=== PATIENT | female | born 1990 | race Caucasian/White ===

== ENCOUNTER 2019-07-28 11:53 | Inpatient (IN) | payer BC ==
[~2019-07-28] VITALS: Ht 157.6 cm; Wt 90.0 kg
[2019-08-01] VITALS (17 sets, daily range): BP systolic 81–117; BP diastolic 43–95; PULSE 52–86; TEMP 97.5–98.5
[2019-08-01] MEDS ORDERED: PRENATAL VITAMI1 TA3 PO (09:46)
[2019-08-01] MEDS ORDERED: PRILOSEC 20MG20 MG PO (09:47)
[2019-08-01 10:11] LABS: BASO % 0.4 % (0.0-2.0); EOS # 0.1 (0.0-0.7); GRAN % 63.3 % (42.2-75.2); HEMATOCRIT 37.6 % (37.0-47.0); HEMOGLOBIN 12.8 g/dl (12.5-16.0); LYMPH # 2.1 (1.2-3.4); LYMPH % 26.1 % (20.0-51.0); MEAN CELL VOLUME 89 fl (80.0-100.0); MEAN CORPUSCULAR HEMOGLOBIN 30 pg (27.0-31.0); MEAN CORPUSCULAR HGB CONC 34 g/dl (33.0-37.0); MEAN PLATELET VOLUME 8.8 fl (7.4-10.4); MONO # 0.7 (0.1-0.6); MONO % 8.7 % (1.7-9.3); PLATELET COUNT 337 K/mm3 (130-400); RED BLOOD COUNT 4.21 M/mm3 (4.10-5.30); REDCELL DISTRIBUTION WIDTH-CV 13.4 % (11.5-14.5)
[2019-08-02 01:30] VITALS: BP 99/59; PULSE 70; TEMP 98.2
[2019-08-02 05:00] VITALS: BP 109/53; PULSE 58; TEMP 98.2
[2019-08-02 08:45] VITALS: BP 104/66; PULSE 70; TEMP 97.8
--- NOTE | 2019-08-02 12:06 | NUR ---
Initial visit attempt; Family indisposed. Record Changer Assembler left card of congratulations for the of their daughter and information regarding the availability of spiritual care at [facility].
[2019-08-02 16:40] VITALS: BP 105/76; PULSE 73; TEMP 97.9
[2019-08-02 21:30] VITALS: BP 113/73; PULSE 79; TEMP 98.6
[2019-08-03 07:20] VITALS: BP 111/70; PULSE 87; TEMP 97.2
[2019-08-03] MEDS ORDERED: PERCOCET 325 MG1 TA2 PO (09:17)
[2019-08-03] MEDS ORDERED: IBU800 M1 PO (09:17)
--- NOTE | 2019-08-03 10:30 | NUR ---
Initial visit; Parents thanked Special Events Assistant for offering congratulations and God's blessings for the of their daughter. Special Events Assistant thanked family for choosing [facility].
[2019-08-03 16:50] VITALS: BP 108/72; PULSE 84; TEMP 97.9
[2019-08-03 20:00] VITALS: BP 117/50; PULSE 84; TEMP 98
[2019-08-04 08:06] VITALS: BP 110/68; PULSE 77; TEMP 97.7
== END 2019-08-04 16:48 | disposition home or self-care (01) | DRG 788 ==
LOC: OB 07-31 11:53
PROVIDERS: ADMIT Student in an Organized Health Care Education/Training Program
PROC: 10D00Z1 Extraction of Products of Conception, Low, Open Approach (ICD-10-PCS; principal; 2019-08-01)
DX: O32.1XX0 Maternal care for breech presentation, not applicable or unspecified (principal); Z3A.39 39 weeks gestation of pregnancy; Z37.0 Single live birth
CPT/HCPCS: J0690; J1885; J2370; J2405; J2590; J7120

== ENCOUNTER 2020-07-13 21:14 | Outpatient (CLI) | payer BC ==
[~2020-07-13] VITALS: Ht 157.5 cm; Wt 85.0 kg
[~2020-07-13 21:14] MED LIST: IBU800 M1 PO; PERCOCET 325 MG1 TA2 PO; PRENATAL VITAMI1 TA3 PO; PRILOSEC 20MG20 MG PO
--- NOTE | 2020-07-13 21:40 | NUR ---
G2L1 at 25.4 weeks gestation to L&D with c/o "bleeding". She states that she was using the bathroom and when she was done she saw blood in the toilet. SVE was completed and was closed/thick/high. There was no blood noted on the glove with exam. The patient then states that she is unsure if the bleeding was coming from her vagina or her rectum because she had a similar incident in March where she was seen in the ER in [place] for blood in her stools and found that she had a "staph infection in her intestines". Visualization of the anus does not reveal any hemorrhoids or active bleeding. Plan of care reviewed and patient placed on EFM. EFM held on abdomen, FHR 140 bpm and reactive. Patient reports good movement. No CTX per toco or patient reports. VSS.
[2020-07-13 21:55] VITALS: BP 119/64; PULSE 98; TEMP 98.2
--- NOTE | 2020-07-13 22:05 | NUR ---
No bleeding noted on pad. Patient given labor precautions and instructions to follow up with the [facility] for next appointment or questions/concerns.
[2020-07-13] MEDS ORDERED: LEXAPRO 10MG10 MG PO (22:31)
== END 2020-07-13 22:30 | disposition home or self-care (01) ==
LOC: LDRO 21:14 → LDR 22:29 → LDRO 22:30
DX: O46.92 Antepartum hemorrhage, unspecified, second trimester (principal); Z3A.25 25 weeks gestation of pregnancy
CPT/HCPCS: OP

== ENCOUNTER 2020-10-08 05:31 | Inpatient (IN) | payer BC ==
[2020-10-08] VITALS (19 sets, daily range): BP systolic 92–125; BP diastolic 50–77; PULSE 51–96; TEMP 97.3–97.7
[~2020-10-08] VITALS: Ht 157.6 cm; Wt 89.5 kg
[~2020-10-08 05:31] MED LIST changes: -PRILOTC
[2020-10-08] MEDS ORDERED: PRILOTC (06:43)
[2020-10-08 06:49] LABS: BASO % 0.4 % (0.0-2.0); EOS # 0.1 (0.0-0.7); GRAN # 5.4 (1.4-6.5); GRAN % 56.2 % (42.2-75.2); HEMATOCRIT 37.4 % (37.0-47.0); HEMOGLOBIN 12.5 g/dl (12.5-16.0); LYMPH # 3.3 (1.2-3.4); LYMPH % 33.9 % (20.0-51.0); MEAN CELL VOLUME 91 fl (80.0-100.0); MEAN CORPUSCULAR HEMOGLOBIN 30 pg (27.0-31.0); MEAN CORPUSCULAR HGB CONC 33 g/dl (33.0-37.0); MEAN PLATELET VOLUME 9.3 fl (7.4-10.4); MONO # 0.8 (0.1-0.6); MONO % 8.2 % (1.7-9.3); PLATELET COUNT 309 K/mm3 (130-400); RED BLOOD COUNT 4.11 M/mm3 (4.10-5.30); REDCELL DISTRIBUTION WIDTH-CV 13.2 % (11.5-14.5)
--- NOTE | 2020-10-08 13:15 | NUR ---
Pt alert and awake, abdomen soft, nondistended c/section abdomen drsg CDI. Fundus firm 1cm below umbilicus. Moderate amt of rubra lochia. Pt denies c/o pain. Assisted to sitting position w/2 stand by assist. Pt standing, tolerates activity well. Ambulates to bathroom w/steady gait. Patel catheter dc'd & intact, maría elena-care completed. Small amt of rubra lochia noted to pilgrims hat. IV site patent to TKO rated. Pt ambulates well to nursery to see baby.
--- NOTE | 2020-10-08 13:30 | NUR ---
IVF DC'D AND INT FLUSHED.
--- NOTE | 2020-10-08 14:30 | NUR ---
Pt voided for the first time after fowler removed, pt voided 400 cc without difficulty. Small amount of lochia rubra noted.
--- NOTE | 2020-10-08 16:30 | NUR ---
Patient voided for the second time after fowler catheter removed, clear, yellow urine w/scant lochia rubra noted.
[2020-10-09] VITALS: BP 105/60; PULSE 82
[2020-10-09 04:10] VITALS: BP 107/55; PULSE 74; TEMP 97.7
--- NOTE | 2020-10-09 07:16 | NUR ---
REPORT RECEIVED FROM OFF GOING RN, DESTINEE Montalvo. CARE TAKEN OVER BY THIS RN.
[2020-10-09 08:35] VITALS: BP 110/65; PULSE 91; TEMP 97.3
--- NOTE | 2020-10-09 10:01 | NUR ---
Initial visit; Patient thanked Molecular Geneticist for offering congratulations and God's blessings for the of her son. Chapalin thanked family for choosing [facility].
[2020-10-09] MEDS ORDERED: IBU800 M1 PO (12:50)
[2020-10-09] MEDS ORDERED: PERCOCET 325 MG1 TA2 PO (12:51)
[2020-10-09 17:00] VITALS: BP 121/68; PULSE 90; TEMP 97.3
[2020-10-09 19:55] VITALS: BP 108/60; PULSE 81; TEMP 97.7
[2020-10-10 08:36] VITALS: BP 131/69; PULSE 106; TEMP 97.7
[2020-10-10 16:28] VITALS: BP 118/81; PULSE 104; TEMP 98.8
== END 2020-10-10 18:45 | disposition home or self-care (01) | DRG 788 ==
LOC: OB 05:31
PROVIDERS: ADMIT Student in an Organized Health Care Education/Training Program
PROC: 10D00Z1 Extraction of Products of Conception, Low, Open Approach (ICD-10-PCS; principal; 2020-10-08)
DX: O34.211 Maternal care for low transverse scar from previous cesarean delivery (principal); K21.9 Gastro-esophageal reflux disease without esophagitis; E66.9 Obesity, unspecified; F41.9 Anxiety disorder, unspecified; Z86.16 Personal history of COVID-19; O99.214 Obesity complicating childbirth; O36.5930 Maternal care for other known or suspected poor fetal growth, third trimester, not applicable or unspecified; O99.344 Other mental disorders complicating childbirth; O99.62 Diseases of the digestive system complicating childbirth; Z3A.38 38 weeks gestation of pregnancy; Z37.0 Single live birth
CPT/HCPCS: J0690; J1885; J2175; J2370; J2405; J2590; J7120

== ENCOUNTER → 2020-10-08 | Outpatient (CLI) | payer BC ==
[~2020-10-08] MED LIST changes: +LEXAPRO 10MG10 MG PO; +PRILOTC
== END ==
LOC: ZCOL.LAB 10-03 14:33
DX: Z20.822 Contact with and (suspected) exposure to COVID-19 (principal)